=== PATIENT | male | born 1960 | race Caucasian/White ===

== ENCOUNTER → 2017-02-27 | Outpatient (CLI) | payer OTHER | END | disposition home or self-care (01) | LOC: CDC 15:52 | DX: I44.7 Left bundle-branch block, unspecified (principal) | CPT/HCPCS: 93000 ==

== ENCOUNTER 2017-03-21 11:50 | Day surgery (SDC) | payer OTHER ==
[~2017-03-21] VITALS: Ht 167.6 cm; Wt 79.4 kg
[~2017-03-21 11:50] MED LIST: CYANOCOBALAM1000 MCG PO; FUROSEMIDE80 MG PO; RENVELA800 MG PO; VALACYCLOVIR500 MG PO
[2017-03-21 12:52] LABS: HEMATOCRIT 34.8 % (38.0-50.0); MCH 30.5 PG (29.0-34.0); MCHC 32.5 G/DL (30.0-36.0); MCV 93.8 FL (86-99); PLATELET COUNT 326 K/uL (156-360); RBC DIS.WIDTH-CV 18.3 % (11.8-14.6); RBC DIS.WIDTH-SD 62.9 % (39-53); RED BLOOD COUNT 3.71 M/uL (4.00-5.50); WHITE BLOOD COUNT 6.4 K/uL (4.1-10.2)
[2017-03-21 13:01] VITALS: BP 127/82
[2017-03-21 13:08] LABS: CHLORIDE 99 mEq/L (99-109); POTASSIUM 4.2 mEq/L (3.7-5.4); SODIUM 141 mEq/L (136-147)
[2017-03-21 13:10] LABS: GLUCOSE 84 mg/dL (70-99)
[2017-03-21 13:11] LABS: ANION GAP 12 MEQ/L (2-14)
[2017-03-21 13:14] LABS: GFR ESTIMATE (CALCULATED) 11 mL/min/
[2017-03-21 13:15] LABS: UREA NITROGEN (BUN) 21 mg/dL (9-23)
[2017-03-21 18:40] VITALS: BP 156/92
== END 2017-03-21 19:08 | disposition home or self-care (01) ==
LOC: SDC 11:50
PROVIDERS: Surgery
DX: N18.6 End stage renal disease (principal); Z99.2 Dependence on renal dialysis; Z92.21 Personal history of antineoplastic chemotherapy
CPT/HCPCS: 80048; 85027; J0690; J1644; J2405; J2720; J3010

== ENCOUNTER 2017-05-16 08:07 | Day surgery (SDC) | payer OTHER ==
[~2017-05-16] VITALS: Ht 167.6 cm; Wt 79.0 kg
[~2017-05-16 08:07] MED LIST changes: +MIDODRINE HCL10 MG PO
[2017-05-16 10:16] LABS: METH RESISTANT S AUREUS PCR NEGATIVE (NEGATIVE); PROBE CHECK PASS; SPECIMEN PROCESSING CONTROL PASS
== END 2017-05-16 10:45 | disposition home or self-care (01) ==
LOC: CATH 08:07
PROVIDERS: Surgery
DX: T82.858A Stenosis of other vascular prosthetic devices, implants and grafts, initial encounter (principal); N18.6 End stage renal disease; Z99.2 Dependence on renal dialysis
CPT/HCPCS: 87641; C1725; C1769; C1894; J1644; J2250; J3010

== ENCOUNTER → 2017-06-13 | Outpatient (CLI) | payer OTHER | END | disposition home or self-care (01) | LOC: AMB 12:03 | PROC: 02PYX3Z Removal of Infusion Device from Great Vessel, External Approach (ICD-10-PCS; principal; 2017-06-13) | DX: Z45.2 Encounter for adjustment and management of vascular access device (principal) ==

== ENCOUNTER 2017-06-23 03:20 | Inpatient (IN) | payer OTHER ==
[~2017-06-23] VITALS: Ht 170.2 cm; Wt 82.1 kg
[2017-06-23 03:55] LABS: HEMATOCRIT 33.5 % (38.0-50.0); HEMOGLOBIN 10.6 G/DL (12.5-16.6); MCH 29.2 PG (29.0-34.0); MCHC 31.6 G/DL (30.0-36.0); MCV 92.3 FL (86-99); PLATELET COUNT 350 K/uL (156-360); RBC DIS.WIDTH-CV 15.2 % (11.8-14.6); RED BLOOD COUNT 3.63 M/uL (4.00-5.50); WHITE BLOOD COUNT 13.1 K/uL (4.1-10.2)
[2017-06-23 04:06] LABS: CHLORIDE 102 mEq/L (99-109); SODIUM 139 mEq/L (136-147)
[2017-06-23 04:07] LABS: POTASSIUM 5.2 mEq/L (3.7-5.4)
[2017-06-23 04:08] LABS: GLUCOSE 87 mg/dL (70-99)
[2017-06-23 04:11] LABS: GFR ESTIMATE (CALCULATED) 7 mL/min/ (58.99-99999)
[2017-06-23 04:14] LABS: CREATININE 8.8 mg/dL (0.6-1.3); UREA NITROGEN (BUN) 47 mg/dL (9-23)
[2017-06-23 04:17] LABS: TROP-I INTERPRETATION NEGATIVE; TROPONIN-I 0.15 ng/mL (0.0-0.30)
[2017-06-23 20:36] VITALS: BP 137/89
[2017-06-24 00:07] VITALS: BP 120/77
[2017-06-24 03:43] VITALS: BP 151/87
[2017-06-24 06:17] LABS: BASOPHIL (%) 0.7 % (0-1); BASOPHIL COUNT 0.1 K/uL (0-0.1); EOSINOPHIL (%) 0.6 % (0-5); EOSINOPHIL COUNT 0.1 K/uL (0-0.3); HEMATOCRIT 30.3 % (38.0-50.0); HEMOGLOBIN 9.6 G/DL (12.5-16.6); IMMATURE GRANULOCYTE (%) 0.5 % (0.0-0.7); LYMPHOCYTE (%) 8.7 % (15-42); LYMPHOCYTE COUNT 0.9 K/uL (1.0-2.8); MCH 29.3 PG (29.0-34.0); MCHC 31.7 G/DL (30.0-36.0); MCV 92.4 FL (86-99); MONOCYTE COUNT 1.1 K/uL (0-0.8); NEUTROPHIL (%) 79.5 % (45-76); NEUTROPHIL COUNT 8.5 K/uL (1.8-6.4); PLATELET COUNT 312 K/uL (156-360); RBC DIS.WIDTH-CV 15.1 % (11.8-14.6); RBC DIS.WIDTH-SD 51.7 % (39-53); RED BLOOD COUNT 3.28 M/uL (4.00-5.50); WHITE BLOOD COUNT 10.6 K/uL (4.1-10.2)
[2017-06-24 06:42] LABS: CHLORIDE 102 MEQ/L (99-109); GLUCOSE 83 mg/dL (70-99); SODIUM 139 MEQ/L (136-147); UREA NITROGEN (BUN) 61 mg/dL (9-23); VANCOMYCIN, TROUGH 36.9 MCG/ML (10-20)
[2017-06-24 06:44] LABS: CREATININE 10.8 MG/DL (0.6-1.3); GFR ESTIMATE (CALCULATED) 5 mL/min/ (58.99-99999)
[2017-06-24 10:30] LABS: HEPATITIS B SURFACE ANTIGEN Nonreactive
[2017-06-24 12:53] VITALS: BP 126/79
[2017-06-24 19:46] VITALS: BP 118/83
[2017-06-25] VITALS: BP 116/80
[2017-06-25 03:58] VITALS: BP 120/82
[2017-06-25 06:48] LABS: BASOPHIL (%) 0.7 % (0-1); BASOPHIL COUNT 0.1 K/uL (0-0.1); EOSINOPHIL (%) 1.1 % (0-5); EOSINOPHIL COUNT 0.1 K/uL (0-0.3); HEMATOCRIT 33.8 % (38.0-50.0); HEMOGLOBIN 10.6 G/DL (12.5-16.6); IMMATURE GRANULOCYTE (%) 0.4 % (0.0-0.7); LYMPHOCYTE (%) 9.5 % (15-42); LYMPHOCYTE COUNT 0.9 K/uL (1.0-2.8); MCH 28.3 PG (29.0-34.0); MCHC 31.4 G/DL (30.0-36.0); MCV 90.4 FL (86-99); MONOCYTE (%) 12.9 % (3-12); MONOCYTE COUNT 1.2 K/uL (0-0.8); NEUTROPHIL (%) 75.4 % (45-76); NEUTROPHIL COUNT 7.1 K/uL (1.8-6.4); PLATELET COUNT 333 K/uL (156-360); RED BLOOD COUNT 3.74 M/uL (4.00-5.50); WHITE BLOOD COUNT 9.5 K/uL (4.1-10.2)
[2017-06-25 07:45] LABS: CHLORIDE 99 MEQ/L (99-109); GLUCOSE 82 mg/dL (70-99); POTASSIUM 5.1 MEQ/L (3.7-5.4); SODIUM 135 MEQ/L (136-147); UREA NITROGEN (BUN) 38 mg/dL (9-23)
[2017-06-25 07:46] LABS: CREATININE 7.4 MG/DL (0.6-1.3); GFR ESTIMATE (CALCULATED) 8 mL/min/ (58.99-99999)
[2017-06-25 08:51] VITALS: BP 115/78
[2017-06-25 12:00] VITALS: BP 126/82
[2017-06-25 17:27] VITALS: BP 140/78
[2017-06-25 19:57] VITALS: BP 120/66
[2017-06-26 01:25] VITALS: BP 108/73
[2017-06-26 04:43] VITALS: BP 113/71
[2017-06-26 08:04] VITALS: BP 104/69
[2017-06-26 08:10] LABS: BASOPHIL (%) 0.7 % (0-1); BASOPHIL COUNT 0.1 K/uL (0-0.1); EOSINOPHIL (%) 1.2 % (0-5); EOSINOPHIL COUNT 0.1 K/uL (0-0.3); HEMATOCRIT 28.4 % (38.0-50.0); IMMATURE GRANULOCYTE (%) 0.3 % (0.0-0.7); LYMPHOCYTE (%) 10.8 % (15-42); MCH 28.4 PG (29.0-34.0); MCHC 31.7 G/DL (30.0-36.0); MCV 89.6 FL (86-99); MONOCYTE (%) 12.1 % (3-12); MONOCYTE COUNT 1.1 K/uL (0-0.8); NEUTROPHIL (%) 74.9 % (45-76); NEUTROPHIL COUNT 6.8 K/uL (1.8-6.4); PLATELET COUNT 363 K/uL (156-360); RBC DIS.WIDTH-CV 14.6 % (11.8-14.6); RBC DIS.WIDTH-SD 48.2 % (39-53); RED BLOOD COUNT 3.17 M/uL (4.00-5.50); WHITE BLOOD COUNT 9.1 K/uL (4.1-10.2)
[2017-06-26 08:34] LABS: CHLORIDE 100 MEQ/L (99-109); GFR ESTIMATE (CALCULATED) 6 mL/min/ (58.99-99999); POTASSIUM 4.6 MEQ/L (3.7-5.4); SODIUM 131 MEQ/L (136-147); UREA NITROGEN (BUN) 54 mg/dL (9-23); VANCOMYCIN, TROUGH 25.8 MCG/ML (10-20)
[2017-06-26 08:38] LABS: CREATININE 9.5 MG/DL (0.6-1.3); GLUCOSE 133 mg/dL (70-99)
[2017-06-26 12:42] VITALS: BP 110/70
[2017-06-26] MEDS ORDERED: LEVAQUIN500 MG PO (13:12)
== END 2017-06-26 15:23 | disposition home or self-care (01) | DRG 871 ==
LOC: EME 03:20 → 5SOUTH 14:29 → EDOF 14:29 → ENRESERV 14:30 → 5SOUTH 17:12 → ENPENDDIS 06-26 13:42 → 5SOUTH 06-26 15:23
PROVIDERS: Family Medicine; Internal Medicine; Internal Medicine Nephrology
PROC: 5A1D70Z Performance of Urinary Filtration, Intermittent, Less than 6 Hours Per Day (ICD-10-PCS; principal; 2017-06-23)
DX: A41.9 Sepsis, unspecified organism (principal); J18.9 Pneumonia, unspecified organism; J96.01 Acute respiratory failure with hypoxia; J90 Pleural effusion, not elsewhere classified; J81.1 Chronic pulmonary edema; I12.0 Hypertensive chronic kidney disease with stage 5 chronic kidney disease or end stage renal disease; N18.6 End stage renal disease; E85.4 Organ-limited amyloidosis; I43 Cardiomyopathy in diseases classified elsewhere; E87.70 Fluid overload, unspecified; E87.5 Hyperkalemia; Z99.2 Dependence on renal dialysis; Y95 Nosocomial condition; F79 Unspecified intellectual disabilities; K21.9 Gastro-esophageal reflux disease without esophagitis; M79.81 Nontraumatic hematoma of soft tissue; R79.1 Abnormal coagulation profile
CPT/HCPCS: 71045; 71046; 71250; 78582; 80048; 80202; 83605; 83880; 84484; 85025; 85027; 85379; 87040; 87070; 87205; 87340; 87449; 87502; 93005; 93970; 94640; 94760; 94799; 99202; 99281; 99285; A9540; J0692; J0881; J1940; J1956; J3370

== ENCOUNTER → 2017-10-20 | Outpatient (CLI) | payer OTHER ==
[~2017-10-20] MED LIST changes: +DOXYCYCLINE MO100 MG PO; +LEVAQUIN500 MG PO; +METOPROLOL SUCC25 MG PO; +VITAMIN B12-FO1 EACH PO
[2017-10-20 11:46] LABS: TYPE OF FLUID PLEURAL
[2017-10-20 12:29] LABS: APPEARANCE YELLOW-CLEAR; BODY FLUID RBC'S < 1000 /MM^3 (0-100); BODY FLUID WBC'S 24 /MM^3 (0-500)
[2017-10-20 12:39] LABS: BODY FLUID EOSINOPHILS 1 % (0-25); MONONUCLEAR WBC'S 35 %; POLYNUCLEAR WBC'S 64 % (0-25)
[2017-10-20 13:00] LABS: BODY FLUID GLUCOSE 111 MG/DL; BODY FLUID LDH 95 IU/L; BODY FLUID PROTEIN < 3.0 G/DL
== END | disposition home or self-care (01) ==
LOC: RAD 10:44 → EDSTATUS 11:00
PROVIDERS: Internal Medicine Pulmonary Disease
PROC: 0W993ZZ Drainage of Right Pleural Cavity, Percutaneous Approach (ICD-10-PCS; principal; 2017-10-20)
DX: J90 Pleural effusion, not elsewhere classified (principal)
CPT/HCPCS: 76942; 82945; 83615 91; 84157; 87070; 87116; 87205; 87206; 88108; 88305; 89051